=== PATIENT | female | born 1965 | race Two or more races ===

== ENCOUNTER 2022-07-03 12:52 | Inpatient (IN) | payer OTHER ==
[~2022-07-03] VITALS: Ht 149.9 cm; Wt 72.6 kg
[~2022-07-03 12:52] MED LIST: CIPRO500 MG PO
--- NOTE | 2022-07-03 15:15 | NUR ---
PTE VERBALIZA QUE LLEVA DESDE EL 6 DE ENERO CON DOLOR DE ESPALDA BAJA Y HOY LE GORDY VOMITOS (4). PTE SE OBSERVA A/O X4
--- NOTE | 2022-07-03 18:22 | NUR ---
PACIENTE ALERTA Y ORIENTADA POR BROOKE. SE ORIENTA DE TRATAMIENTO TUAN ORDEN MEDICA POR MIS FISHER RN. PACIENTE REFIERE ENTENDER. ESTA ADMINISTRA MEDICAMEN- TOS Y REALIZA MUESTRAS CON MEDIDAS ASEPTICAS CORRESPONDIENTES. EN ESPERA DE RESULTADOS PARA RE EVALUACION MEDICA.
== END 2022-07-08 14:45 | disposition home or self-care (01) | DRG 660 ==
LOC: ER 12:52 → SURG 23:05 → SURH 23:05 → SEC-K 23:05 → SURG 07-04 03:11 → SURH 07-04 11:01 → MEDJ 07-04 16:24 → SURH 07-04 16:34
PROVIDERS: Surgery; ADMIT Internal Medicine; ATTEND Internal Medicine
PROC: 0T768DZ Dilation of Right Ureter with Intraluminal Device, Via Natural or Artificial Opening Endoscopic (ICD-10-PCS; 2022-07-04)
PROC: BW21ZZZ Computerized Tomography (CT Scan) of Abdomen and Pelvis (ICD-10-PCS; principal; 2022-07-04 12:00)
DX: N20.1 Calculus of ureter (principal); N17.8 Other acute kidney failure; N39.0 Urinary tract infection, site not specified; D72.828 Other elevated white blood cell count; E87.6 Hypokalemia; Z20.822 Contact with and (suspected) exposure to COVID-19

== ENCOUNTER 2022-07-11 10:19 | Outpatient (CLI) | payer OTHER | END 2022-07-11 10:27 | disposition home or self-care (01) | LOC: RAD 10:19 | PROVIDERS: ATTEND Surgery | DX: N20.1 Calculus of ureter (principal) ==

== ENCOUNTER 2022-08-08 06:32 | Day surgery (SDC) | payer OTHER ==
[~2022-08-08] VITALS: Ht 149.9 cm; Wt 73.0 kg
[~2022-08-08 06:32] MED LIST changes: +CHILDREN'S ASPI81 MG PO
[2022-08-08] MEDS ORDERED: URETRON D-S TAB1 TAB PO (16:06)
[2022-08-08] MEDS ORDERED: CEPHALEXIN500 M1 PO (16:07)
[2022-08-08] MEDS ORDERED: TAMS0.4C PO (16:10)
[2022-08-08] MEDS ORDERED: TRAMADOL HCL50 MG PO (16:10)
== END 2022-08-08 20:30 | disposition home or self-care (01) ==
LOC: CIR.AMB 06:32
PROVIDERS: ATTEND Surgery
DX: N20.1 Calculus of ureter (principal); Z20.822 Contact with and (suspected) exposure to COVID-19; R73.03 Prediabetes